=== PATIENT | male | born 1960 | race Caucasian/White ===

== ENCOUNTER 2021-12-23 07:41 | Observation (INO) ==
[~2021-12-23 07:41] MED LIST: Gentamicin 80 MG/2 ML VIAL IM ONE; cefOXitin 2,000 MG in 0.9 % Sodium Chloride 20 ML IVP ONE
[2021-12-23] MEDS ORDERED: Lidocaine -MPF 2% 5 ML VIAL ONE (08:10)
[2021-12-23] MEDS ORDERED: *HR* Propofol 200 MG/20 ML VIAL IVP ONE (08:10)
[2021-12-23] MEDS ORDERED: Heparin 1,000 UNITS/500 mL 500 ML ONE (08:10)
[2021-12-23] MEDS ORDERED: *HR* Rocuronium Bromide 50 MG/5 ML VIAL ONE ×3 (08:10→15:16)
[2021-12-23] MEDS ORDERED: Ondansetron 4 MG/2 ML VIAL ONE (08:10)
[2021-12-23] MEDS ORDERED: *HR* Succinylcholine 200 MG/10 ML VIAL IVP ONE (08:10)
[2021-12-23] MEDS ORDERED: *HR* FentaNYL (PF) 100 MCG/2 ML VIAL ONE (08:10)
[2021-12-23] MEDS ORDERED: Ringers Solution, Lactated 1,000 ML IVC SCH (08:15)
[2021-12-23 10:39] LABS: Basophils % 0.2 %; Red Cell Distribution Width 14.2 % (11.5-14.5)
[2021-12-23 10:41] LABS: Eosinophils # 0.1 K/mcL (0.0-0.6); Eosinophils % 2.8 %; Hematocrit 34.2 % (37.5-50.1); Immature Platelets 0.6 % (1.1-6.1); Lymphocytes % 21.4 %; Mean Corpuscular HGB Conc 32.2 g/dL (31.6-35.5); Mean Corpuscular Hemoglobin 31.8 pg (28.0-33.3); Mean Corpuscular Volume 98.8 fL (83.0-100.0); Monocytes # 0.7 K/mcL (0.0-1.3); Monocytes % 15.7 %; Neutrophils # 2.8 K/mcL (1.6-8.9); Platelet Count 117 K/mcL (140-400); Red Blood Count 3.46 M/mcL (4.19-5.50); Segmented Neutrophils % 59.9 %; White Blood Count 4.7 K/mcL (4.3-11.1)
[2021-12-23 10:49] LABS: INR 1.1; Prothrombin Time 12.4 Seconds (9.4-12.1)
[2021-12-23 10:59] LABS: Calcium 9.1 mg/dL (8.6-10.3); Potassium 4.1 mEq/L (3.5-5.1)
[2021-12-23] MEDS ORDERED: CefOXitin 2,000 MG VIAL ONE ×2 (11:37→16:34)
[2021-12-23] MEDS ORDERED: EPHEDrine 50 MG/ML VIAL ONE (12:01)
[2021-12-23] MEDS ORDERED: *HR* Phenylephrine 10 MG/ML VIAL ONE (12:29)
[2021-12-23] MEDS ORDERED: Naloxone 0.4 MG/ML INJ IVP PRN (17:00)
[2021-12-23] MEDS ORDERED: Sugammadex Sodium 200 MG/2 ML VIAL IV ONE (17:05)
[2021-12-23] MEDS ORDERED: *HR* EPINEPHrine 1 MG/10 ML SYRINGE IVP ONE ×2 (17:40→18:00)
[2021-12-23] MEDS ORDERED: Ondansetron 4 MG/2 ML VIAL IVP PRN (19:59)
[2021-12-23] MEDS ORDERED: Melatonin 3 MG TABLET PO PRN (19:59)
[2021-12-23] MEDS ORDERED: *HR* Promethazine 25 MG/ML VIAL IM PRN (19:59)
[2021-12-23] MEDS: Ringers Solution, Lactated 1,000 ML IVC SCH (21:11)
[2021-12-24] MEDS: Ringers Solution, Lactated 1,000 ML IVC SCH (05:31)
[2021-12-24] MEDS ORDERED: Pantoprazole 40 MG VIAL IVP SCH (06:00)
[2021-12-24 07:17] LABS: Hematocrit 33.9 % (37.5-50.1); Hemoglobin 10.7 g/dL (12.9-16.9); Immature Granulocytes % 0.4 % (0-4); Lymphocytes # 0.8 K/mcL (0.6-4.6); Lymphocytes % 10.2 %; Mean Corpuscular HGB Conc 31.6 g/dL (31.6-35.5); Mean Corpuscular Hemoglobin 31.2 pg (28.0-33.3); Mean Corpuscular Volume 98.8 fL (83.0-100.0); Monocytes # 0.5 K/mcL (0.0-1.3); Monocytes % 6.4 %; Neutrophils # 6.5 K/mcL (1.6-8.9); Platelet Count 105 K/mcL (140-400); Red Blood Count 3.43 M/mcL (4.19-5.50); Red Cell Distribution Width 14.4 % (11.5-14.5)
[2021-12-24 07:25] LABS: White Blood Count 7.8 K/mcL (4.3-11.1)
[2021-12-24 07:32] LABS: Calcium 8.8 mg/dL (8.6-10.3); Magnesium 1.6 mg/dL (1.6-2.6); Potassium 4.5 mEq/L (3.5-5.1)
[2021-12-24] MEDS ORDERED: carvediloL 25 MG TABLET PO SCH (08:00)
[2021-12-24] MEDS ORDERED: Mycophenolate Sodium (DR) 180 MG TABLET.DR PO SCH ×2 (09:00)
[2021-12-24] MEDS ORDERED: calcitrioL 0.25 MCG CAPSULE PO SCH (09:00)
[2021-12-24] MEDS ORDERED: Cholecalciferol (D-3) 1,000 UNIT (25MCG) TABLET PO SCH (09:00)
[2021-12-24] MEDS ORDERED: cefTRIAXone 2,000 MG in 0.9 % Sodium Chloride 20 ML IVP SCH (09:00)
[2021-12-24] MEDS ORDERED: predniSONE 5 MG TABLET PO SCH (09:00)
[2021-12-24] MEDS ORDERED: SIROLIMUS 0.5 MG PO SCH (09:00)
[2021-12-24 09:39] VITALS: O2SAT 93
[2021-12-24 11:40] VITALS: BP 132/64; PULSE 95; TEMP 98.1
== END 2021-12-24 14:20 | disposition home or self-care (01) ==
LOC: SUATTDRO → 2NENU 07:41 → SAMDAY 07:41 → 2NENU 19:52
PROVIDERS: ADMIT Internal Medicine; ATTEND Internal Medicine